=== PATIENT | female | born 2000 | race Caucasian/White ===

== ENCOUNTER 2025-03-06 08:21 | Inpatient (IN) | payer OTHER ==
[2025-03-06 12:12] LABS: ABSOLUTE IMMATURE GRANULOCYTES 0.21 x10^3/uL (0.0-0.031); BASOPHILS # 0.06 x10^3/uL (0.01-0.08); EOSINOPHIL % 0.9 % (0.7-5.8); EOSINOPHILS # 0.12 x10^3/uL (0.04-0.36); MCHC 30.5 g/dl (32.2-35.5); MEAN CELL VOLUME 86.0 fl (79.4-94.8); MEAN PLT VOLUME 9.1 fl (9.4-12.3); MONOCYTE # 0.96 x10^3/uL (0.24-0.86); MONOCYTE % 7.6 % (4.7-12.5); RDW 14.0 % (12.1-16.5)
[2025-03-06] MEDS: ELECTROLYTE-148 SOLN 1,000 ML IV SCH (12:20)
[2025-03-06] MEDS ORDERED: OXYTOCIN 30 UNITS in 0.9% NS 30 UNIT/500 ML INFUS.BAG IVPB ONE (12:20)
[2025-03-06] MEDS: OXYTOCIN 30 UNITS in 0.9% NS 30 UNIT/500 ML INFUS.BAG IVPB SCH (12:24)
[2025-03-06 12:34] LABS: INR 0.98 (0.83-1.09); PROTHROMBIN TIME (PATIENT) 10.8 SEC (9.7-13.0)
[2025-03-06 12:35] LABS: GLUCOSE,RANDOM 73.0 mg/dL (74-106)
[2025-03-06 12:36] LABS: ACTIVATED PTT 25.2 SECONDS (25.2-36.5); CO2 23.0 mmol/L (21-32)
[2025-03-06 12:40] LABS: CREATININE 0.54 mg/dL (0.55-1.3)
[2025-03-06 12:59] VITALS: BMI 27.4
[2025-03-06] MEDS ORDERED: BUTORPHANOL TARTRATE 2 MG/ML VIAL ONE (21:29)
[2025-03-06] MEDS: BUTORPHANOL TARTRATE 1 MG/ML VIAL IVPUSH ONE (21:35)
[2025-03-06] MEDS: PROMETHAZINE HCL 25 MG/1 ML VIAL IVPUSH ONE (21:35)
[2025-03-07] MEDS ORDERED: FENTANYL/BUPIVACAINE/NS/PF - PCEA - 50 ML DISP.SYRIN EP ONE ×2 (01:24→04:26)
[2025-03-07] MEDS ORDERED: NALOXONE HCL 0.4 MG/ML VIAL IVPUSH PRN (01:42)
[2025-03-07] MEDS ORDERED: BUPIVACAINE HCL/PF 0.25% (2.5MG/ML) 10 ML VIAL ONE (01:44)
[2025-03-07] MEDS: FENTANYL/BUPIVACAINE/NS/PF - PCEA - 50 ML DISP.SYRIN EP SCH (02:00)
[2025-03-07] MEDS: AMPICILLIN - 2 GM in SODIUM CHLORIDE 100 ML IVPB ONE (02:00)
[2025-03-07] MEDS ORDERED: SODIUM CHLORIDE 100 ML IVPB ONE ×2 (02:02→05:53)
[2025-03-07] MEDS ORDERED: AMPICILLIN SODIUM 2 GM VIAL ONE (02:02)
[2025-03-07] MEDS ORDERED: AMPICILLIN SODIUM 1 GM VIAL ONE (05:53)
[2025-03-07] MEDS: AMPICILLIN - 1 GM in SODIUM CHLORIDE 100 ML IVPB SCH (06:00)
[2025-03-07] MEDS ORDERED: OXYTOCIN 20 UNITS in 0.9% NS 20 UNIT/1,000 ML INFUS.BAG IV ONE (06:05)
[2025-03-07] MEDS: OXYTOCIN 20 UNITS in 0.9% NS 20 UNIT/1,000 ML INFUS.BAG IV SCH (06:40)
[2025-03-07] MEDS ORDERED: BENZOCAINE 28 GM HEMORRHOIDAL OINTMENT TP PRN (06:59)
[2025-03-07] MEDS ORDERED: METHYLERGONOVINE MALEATE 0.2 MG/1 ML AMP IM PRN (06:59)
[2025-03-07] MEDS ORDERED: BISACODYL 10 MG SUPP.RECT RC PRN (06:59)
[2025-03-07] MEDS ORDERED: ACETAMINOPHEN 325 MG TABLET (FP) PO PRN (06:59)
[2025-03-07 07:27] VITALS: RESP 18
[2025-03-07 08:59] LABS: CORD BASE EXCESS -5.8 mmol/L (0-2); CORD HCO3 18.7 mmHg (20-29); CORD PCO2 33.7 mmHg (30-78); CORD pH 7.361 (7.14-7.44)
[2025-03-07] MEDS: IBUPROFEN 600 MG TABLET (FP) PO PRN (11:10)
[2025-03-07] MEDS: BENZOCAINE 20% 57 GM BOTTLE TP PRN (12:26)
[2025-03-07] MEDS: PROMETHAZINE HCL 25 MG/1 ML VIAL IVPB ONE (12:27)
[2025-03-07] MEDS: WITCH HAZEL 50% (TUCKS) 40 PAD/JAR PAD TP PRN (12:27)
[2025-03-08 08:06] LABS: MCHC 30.4 g/dl (32.2-35.5); MEAN CELL VOLUME 87.3 fl (79.4-94.8); MEAN PLT VOLUME 9.1 fl (9.4-12.3); RDW 14.3 % (12.1-16.5)
[2025-03-08] MEDS: SENNOSIDES/DOCUSATE COMBO (SENNA PLUS) TABLET (UD) PO PRN (22:00)
[2025-03-09 07:15] LABS: BASOPHILS # 0.08 x10^3/uL (0.01-0.08)
[2025-03-09 07:21] LABS: ABSOLUTE IMMATURE GRANULOCYTES 0.25 x10^3/uL (0.0-0.031); EOSINOPHIL % 3.7 % (0.7-5.8); EOSINOPHILS # 0.58 x10^3/uL (0.04-0.36); MCHC 31.1 g/dl (32.2-35.5); MEAN CELL VOLUME 86.0 fl (79.4-94.8); MEAN PLT VOLUME 8.9 fl (9.4-12.3); MONOCYTE # 1.02 x10^3/uL (0.24-0.86); MONOCYTE % 6.5 % (4.7-12.5); RDW 14.2 % (12.1-16.5)
[2025-03-09 10:22] VITALS: BP 111/72; PULSE 74; TEMP 98.4
== END 2025-03-09 12:50 | disposition home or self-care (01) | DRG 560 ==
LOC: JDEL 08:21 → JLDR 11:10 → J3W 03-07 10:11
PROVIDERS: ADMIT Obstetrics & Gynecology; ATTEND Obstetrics & Gynecology
PROC: 0HQ9XZZ Repair Perineum Skin, External Approach (ICD-10-PCS; principal; 2025-03-07)
PROC: 10E0XZZ Delivery of Products of Conception, External Approach (ICD-10-PCS; 2025-03-07)
DX: O70.0 First degree perineal laceration during delivery (principal); Z3A.39 39 weeks gestation of pregnancy; Z37.0 Single live birth
CPT/HCPCS: 36415; 36600; 59409; 76819-TC; 80048; 82803; 85025; 85610; 85730; 86780; 86850; 86900; 86901